=== PATIENT | female | born 1995 | race Caucasian/White ===

== ENCOUNTER 2025-01-17 17:33 | Emergency (ER) | payer OTHER, SELFPAY ==
[2025-01-17 17:39] VITALS: BP 168/82; PULSE 92; RESP 18; TEMP 36.8; O2SAT 100; BMI 20.7
--- NOTE | 2025-01-17 18:14 | ED_ITS ---
<Statement entered by Dionicio Moreno DO - 01/17/25 20:50> Dr. Moreno: I was immediately available in the department for consultation. I did not actually see the patient. HPI - Headache General Chief Complaint: Headache Stated Complaint: migraine shooting px neck Time Seen by Provider: 01/17/25 17:55 Mode of arrival: Ambulatory History of Present Illness HPI Narrative: Ms. Au is a pleasant 29-year-old female with a past medical history of fibromyalgia and migraine headaches who presents to the emergency department for migraine since she woke up this morning. Patient reports she typically gets migraines a few times a month that she can resolve with lying in a certain position however this morning she woke up with a migraine that is gradually getting worse. Reports that she took ibuprofen and Tylenol without relief and she also attempted to take Flexeril but threw it up. Describes headache as being across her forehead and scalp, causing shooting pains down her entire neck and back. Reports that she is also having some sensitivity to light. Describes this migraine is similar to priors but longer lasting and with photosensitivity which is not typical for her. She denies any visual changes. No fevers or chills or flu-like symptoms. No sinus pressure or ear pain. No head trauma. She is here with her spouse. Related Data Home Medications Medication Instructions Recorded Confirmed acetaminophen 500 mg tablet 500 mg PO 01/17/25 ibuprofen 600 mg tablet 600 mg PO Q6H PRN Pain (Scale 01/17/25 01/17/25 Score 7-10) Previous Rx's Medication Instructions Recorded lidocaine 5 % topical patch 1 patch topical DAILY #30 ea 01/17/25 (Lidoderm) naproxen 500 mg tablet 500 mg PO BID PRN pain #14 tabs 01/17/25 ondansetron 4 mg disintegrating 4 mg PO Q8H PRN nausea and 01/17/25 tablet vomiting #14 tabs Allergies Allergy/AdvReac Type Severity Reaction Status Date / Time prednisone AdvReac Vomiting Verified 01/17/25 17:42 Review of Systems Review of Systems ROS Unobtainable: All systems reviewed & are unremarkable except as noted in HPI and below Patient History tobacco type: vaping Exam Narrative Exam Narrative: GENERAL: 29 year old patient appears stated age. Well-developed patient, in no acute distress. HEAD: Atraumatic. Normocephalic. EYES: PERRL. Extraocular motions intact. No scleral icterus. No injection or drainage. ENT: Dried cerumen in BL canals. Nose without bleeding, purulent drainage. Throat without erythema, tonsillar hypertrophy or exudate. Airway patent. Recently removed wisdom teeth x 4 healing well. NECK: Trachea midline. Cervical ROM intact. Subjective pain in right cervical paraspinal region with rotation of head to the neck. No midline cervical tenderness. Negative Kernig and Brudzinski sign. CARDIOVASCULAR: Regular rate and rhythm. RESPIRATORY: ?Nonlabored respirations. ?Speaking in clear, full sentences. ?Clear to auscultation. Breath sounds equal bilaterally. No wheezes, rales, or rhonchi. ? EXTREMITIES: No edema or joint tenderness. Mild subjective BL hip pain with flexion. BACK: Nontender without deformity or crepitance. No flank tenderness. NEURO: AOx3. ?Clear speech. ?Moves all 4 extremities appropriately. No facial asymmetry. Normal [id number], rapid alternating movements, heel-galvez. No pronator drift. Sensation intact to light touch throughout the face and upper and lower extremities. Good insight and judgment. SKIN: No rash or erythema of visible areas Initial Vital Signs Initial Vital Signs: Vital Signs Temperature 98.2 F 01/17/25 17:39 Pulse Rate 92 H 01/17/25 17:39 Respiratory Rate 18 01/17/25 17:39 Blood Pressure 168/82 H 01/17/25 17:39 Pulse Oximetry 100 01/17/25 17:39 Oxygen Delivery Method Room Air 01/17/25 17:39 Course Orders Ordered: Sodium Chloride (Normal Saline 0.9%) 1,000 mls @ 1,000 mls/hr IV BOLUS ONE Stop: 01/17/25 19:08 Last Admin: 01/17/25 18:23 Dose: 1,000 mls/hr Lidocaine (Remove Lidocaine Patch) 1 each TOP BEDTIME GINA Discontinued Medications Diphenhydramine HCl (Diphenhydramine 50 Mg/Ml Vial) 25 mg IV NOW ONE Stop: 01/17/25 18:10 Last Admin: 01/17/25 18:22 Dose: 25 mg Ketorolac Tromethamine (Ketorolac 30 Mg/Ml Vial) 15 mg IV NOW ONE Stop: 01/17/25 18:10 Last Admin: 01/17/25 18:23 Dose: 15 mg Lidocaine (Lidocaine 5% Patch) 1 each TOP NOW ONE Stop: 01/17/25 18:10 Last Admin: 01/17/25 18:23 Dose: 1 each Prochlorperazine (Prochlorperazine 10 Mg/2 Ml Vial) 10 mg IV NOW ONE Stop: 01/17/25 18:10 Last Admin: 01/17/25 18:30 Dose: 10 mg Vital Signs Vital signs: Vital Signs - 8 hr 01/17/25 17:39 01/17/25 18:30 Temperature 98.2 F Pulse Rate 92 H 88 Respiratory Rate 18 Blood Pressure 168/82 H 136/91 H Pulse Oximetry 100 Oxygen Delivery Method Room Air MDM - Headache Medical Records Medical records narrative: None available [facility] Narrative Medical decision making narrative: 29-year-old female with a past medical history of fibromyalgia and migraine headaches who presents to the emergency department for migraine since she woke up this morning. Differential diagnosis includes but is not limited to cervicogenic migraine, tension headache, muscle spasms, fibromyalgia flare, etc. On exam the patient is in no acute distress, nontoxic appearing. Her blood pressure is slightly elevated in triage, she has not having any chest pain or shortness of breath. She has no focal neurologic deficits, her pupils are equal round and reactive, no history of head trauma. Negative meningeal signs. She does have a history of migraine headaches. We will proceed with migraine cocktail including Compazine, IV fluids, Benadryl, Toradol and apply Lidoderm patch to the cervical region. She is agreeable to this plan. Patient feeling much better after ED treatment. Reports migraine is almost completely resolved. She is requesting discharge home. She was prescribed naproxen and Zofran to use if needed for continuing migraine/headache at home in addition [id number] Tylenol. Recommended prompt follow up with your PCP for further evaluation. We discussed strict ED return precautions. Patient verbalized understanding all information and is agreeable to this plan. She is stable for discharge home. Discharge Plan Departure Patient Disposition: Home Clinical Impression: Migraine, cervicogenic Instructions: DI for Migraine Activity Restrictions/Additional Instructions: Dear Ms. Au, Thank you for coming to the emergency department. Today you were treated with an IV migraine cocktail. I am happy that your symptoms have improved. Please go home rest, hydrate, use the prescribed naproxen and nausea medication if needed in addition to Tylenol. Please follow up with your primary care doctor for further evaluation and management of your migraines. Please return to the emergency department if you develop any new or worsening symptoms, persistent vomiting, severe neck pain, fevers or other concerns. Please follow up with your primary care doctor within the next 2-3 days for ER follow-up. (If you do not have a PCP you can call [phone]. ?to schedule an appointment with an [facility] Primary Care Provider) IF YOU DEVELOP ANY NEW OR WORSENING SYMPTOMS, RETURN TO THE ER! Please read the attached instructions, they highlight more specific treatments and interventions for you at home. Thank you for letting me participate in your care, Deepika Lindsey PA-C Prescriptions: New naproxen 500 mg tablet 500 mg PO BID PRN (Reason: pain) Qty: 14 0RF Rx Instructions: Take with food. ondansetron 4 mg tablet,disintegrating 4 mg PO Q8H PRN (Reason: nausea and vomiting) Qty: 14 0RF lidocaine [Lidoderm] 5 % adhesive patch,medicated 1 patch topical DAILY Qty: 30 0RF Rx Instructions: leave on most painful area for up to 12 hrs No Action acetaminophen 500 mg tablet 500 mg PO ibuprofen 600 mg tablet 600 mg PO Q6H PRN (Reason: Pain (Scale Score 7-10)) Referrals: Miscellaneous,Doctor, MD [Primary Care Provider] - Stand Alone Forms: Patient Portal/API/Survey
[2025-01-17] MEDS: diphenhydrAMINE 50 MG/ML VIAL 25 MG IV (18:22)
[2025-01-17] MEDS: SODIUM CHLORIDE 0.9% 1,000 ML 1000 ML IV (18:23)
[2025-01-17] MEDS: KETOROLAC 30 MG/ML VIAL 15 MG IV (18:23)
[2025-01-17] MEDS: LIDOCAINE 5% PATCH 1 EACH TOP (18:23)
[2025-01-17 18:30] VITALS: BP 136/91; PULSE 88
[2025-01-17] MEDS: PROCHLORPERAZINE 10 MG/2 ML VIAL IV (18:30)
[2025-01-17 19:03] VITALS: BP 132/76; PULSE 97; RESP 16; O2SAT 99
== END 2025-01-17 19:10 | disposition home or self-care (01) ==
PROVIDERS: Emergency Provider Physician Assistant
DX: G43.809 Other migraine, not intractable, without status migrainosus (principal)
CPT/HCPCS: 96361; 96374; 96375; 99283; 99284; J0780; J1200; J1885

== ENCOUNTER 2025-02-07 09:22 | Emergency (ER) | payer OTHER, SELFPAY ==
[2025-02-07 09:25] VITALS: BP 132/87; PULSE 89; RESP 17; TEMP 37.1; O2SAT 100; BMI 21.4
--- NOTE | 2025-02-07 09:30 | DI.RAD.S_ITS ---
PROCEDURE: XR ANKLE LT MIN 3V INDICATIONS: rolled ankle per pt TECHNIQUE: 3 views of the ankle were acquired. COMPARISON: None. FINDINGS: Bones: No fractures or dislocations. Ankle mortise is normally aligned. No suspicious bony lesions. Soft tissues: No tibiotalar joint effusion. Achilles tendon appears normal. IMPRESSION: No acute bony abnormality or significant effusion. Dictated by: Samuel Conway M.D. on 02/07/2025 at 9:58 Approved by: Samuel Conway M.D. on 02/07/2025 at 9:59
--- NOTE | 2025-02-07 09:31 | DI.RAD.S_ITS ---
PROCEDURE: XR FOOT LT MIN 3V INDICATIONS: rolled ankle per pt TECHNIQUE: 3 views of the foot were acquired. COMPARISON: [facility], CR, XR ANKLE LT MIN 3V, 02/07/2025, 9:31. FINDINGS: Bones: No fractures or dislocations. No suspicious bony lesions. Soft tissues: No tibiotalar joint effusion. Achilles tendon appears normal. IMPRESSION: No acute bony abnormality. Dictated by: Samuel Conway M.D. on 02/07/2025 at 10:00 Approved by: Samuel Conway M.D. on 02/07/2025 at 10:00
--- NOTE | 2025-02-07 10:25 | PC.NURSE ---
pt states she rolled her ankle last night while walking dog; denies falling. No swelling noted. left foot warm but not red.
--- NOTE | 2025-02-07 10:31 | ED_ITS ---
HPI - Extremity Injury (Lower) General Chief Complaint: Extremity Injury, Lower Stated Complaint: Rolled left ankle Time Seen by Provider: 02/07/25 10:22 Source: patient Mode of arrival: Wheelchair History of Present Illness HPI Narrative: Patient here with a loss prevention analyst for complaints of left lateral foot pain. Patient never had surgery on this foot or ankle before. Does have history of left hip impingement that she uses a cane to walk around with at baseline. Denies does not want a test. She twisted her foot yesterday while walking her dog. Denies any other injuries. No numbness tingling or weakness. Can not bear weight on the foot due to pain. Shoe and sock removed. Related Data Home Medications Medication Instructions Recorded Confirmed acetaminophen 500 mg tablet 500 mg PO 01/17/25 ibuprofen 600 mg tablet 600 mg PO Q6H PRN Pain (Scale 01/17/25 01/17/25 Score 7-10) Previous Rx's Medication Instructions Recorded lidocaine 5 % topical patch 1 patch topical DAILY #30 ea 01/17/25 (Lidoderm) naproxen 500 mg tablet 500 mg PO BID PRN pain #14 tabs 01/17/25 ondansetron 4 mg disintegrating 4 mg PO Q8H PRN nausea and 01/17/25 tablet vomiting #14 tabs Allergies Allergy/AdvReac Type Severity Reaction Status Date / Time adhesive Allergy Blister Verified 02/07/25 09:25 prednisone AdvReac Vomiting Verified 02/07/25 09:25 Review of Systems Review of Systems Narrative: GENERAL: Negative chills, fatigue, malaise, fever, sweats. HEENT: Negative sinus pain, ear pain, sore throat RESPIRATORY: Negative dyspnea, cough CARDIOVASCULAR: Negative chest pain, palpitations GASTROINTESTINAL: Negative vomiting, nausea, abdominal pain : Negative dysuria, frequency, hematuria MUSCULOSKELETAL: Positive muscle or bony pain SKIN: Negative rash, skin lesions NEUROLOGIC: Negative weakness, numbness ROS Unobtainable: All systems reviewed & are unremarkable except as noted in HPI and below Patient History tobacco type: vaping Exam Narrative Exam Narrative: GENERAL: in no distress, not toxic not dyspneic HEAD: Normocephalic. EYES: Pupils equal round EXTREMITIES: No gross deformities. Examination left lower extremity nontender ankle and knee and proximal tib-fib. Foot is warm soft pink brisk cap refills light touch intact to the foot until his wiggles toes. Strong pedal pulse. Brisk cap refills. There is tenderness and edema to the lateral proximal foot. No toe injury. Patient unable to bear weight. Due to pain NEURO: AOx4. Clear speech SKIN: Warm and dry PSYCH: Not anxious, is cooperative Initial Vital Signs Initial Vital Signs: Vital Signs Temperature 98.7 F 02/07/25 09:25 Pulse Rate 89 02/07/25 09:25 Respiratory Rate 17 02/07/25 09:25 Blood Pressure 132/87 02/07/25 09:25 Pulse Oximetry 100 02/07/25 09:25 Oxygen Delivery Method Room Air 02/07/25 09:25 Procedures Orthopedic Splinting/Casting Injury #1: Time of procedure: 10:35 Side: left Lower Extremity Injury Location: foot Lower Extremity Immobilizer: posterior splint Other Orthopedic Equipment: crutches Post splinting neuro exam: intact and no change Post splinting vascular exam: no change Placed by: Nursing Course Orders Ordered: ED Orders 02/07/25 09:30 XR ankle LT min 3V Stat 02/07/25 09:31 XR foot LT min 3V Stat Discontinued Medications Hydrocodone Bitart/Acetaminophen (Hydrocodone/Acet 5/325 Tablet) 2 tab PO NOW ONE Stop: 02/07/25 10:35 Last Admin: 02/07/25 10:39 Dose: 2 tab Vital Signs Vital signs: Vital Signs - 8 hr 02/07/25 09:25 02/07/25 10:59 Temperature 98.7 F Pulse Rate 89 Respiratory Rate 17 19 Blood Pressure 132/87 Pulse Oximetry 100 Oxygen Delivery Method Room Air MDM - Extremity Injury (Lower) Imaging Data Extremity x-ray #1: Radiologist's Impression: [address] [address] XRay Report Signed Patient: Kathrine Au MR#: [id number] : 1995 Acct:[id number] Age/Sex: 29 / F Date of Service: 02/07/25 Loc: ED Accession Number: [id number] Procedure: XR foot LT min 3V Ordering Provider: Narendra Keita MD PROCEDURE: XR FOOT LT MIN 3V INDICATIONS: rolled ankle per pt TECHNIQUE: 3 views of the foot were acquired. [facility], 9:31. FINDINGS: Bones: No fractures or dislocations. No suspicious bony lesions. Soft tissues: No tibiotalar joint effusion. Achilles tendon appears normal. IMPRESSION: No acute bony abnormality. Dictated by: Samuel Conway M.D. on 02/07/2025 at 10:00 Approved by: Samuel Conway M.D. on 02/07/2025 at 10:00 Extremity x-ray #2: Radiologist's Impression: [address] [address] XRay Report Signed Patient: Kathrine Au MR#: [id number] : 1995 Acct:[id number] Age/Sex: 29 / F Date of Service: 02/07/25 Loc: ED Accession Number: [id number] Procedure: XR ankle LT min 3V Ordering Provider: Narendra Keita MD PROCEDURE: XR ANKLE LT MIN 3V INDICATIONS: rolled ankle per pt TECHNIQUE: 3 views of the ankle were acquired. COMPARISON: None. FINDINGS: Bones: No fractures or dislocations. Ankle mortise is normally aligned. No suspicious bony lesions. Soft tissues: No tibiotalar joint effusion. Achilles tendon appears normal. IMPRESSION: No acute bony abnormality or significant effusion. Dictated by: Samuel Conway M.D. on 02/07/2025 at 9:58 Approved by: Samuel Conway M.D. on 02/07/2025 at 9:59 [facility] Narrative Medical decision making narrative: Patient here with a loss prevention analyst for complaints of left lateral foot pain. Patient never had surgery on this foot or ankle before. Does have history of left hip impingement that she uses a cane to walk around with at baseline. Denies does not want a test. She twisted her foot yesterday while walking her dog. Denies any other injuries. No numbness tingling or weakness. Can not bear weight on the foot due to pain. Shoe and sock removed. After history and exam, x-ray left foot and ankle, pain medication [facility] Medical records reviewed: No recent visit for this complaint Differential considered: Includes but not limited to foot fracture strain sprain Imaging studies independently reviewed: X-rays left foot and ankle no acute finding Consultations: Referral for Orthopedics provided Re-evaluations: 10:45 a.m.. Patient tolerated splinting very well. Pain is controlled. Return precautions reviewed. Need repeat imaging if not improving 10 days. Not toxic at discharge. 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 Orthopedic referral provided. She desires discharge home. Discussion: Appropriate for discharge home exam is reassuring. Pain is controlled. Patient tolerated splinting very well. Return precautions reviewed. May need repeat x-ray or imaging 7-10 days if not improving. Return precautions reviewed. She desires discharge home. Diagnosis: Foot sprain Discharge Plan Departure Patient Disposition: Home Clinical Impression: Foot sprain Qualifiers: Encounter type: initial encounter Laterality: left Qualified Code(s): S93.602A - Unspecified sprain of left foot, initial encounter Instructions: DI for Foot Sprain Activity Restrictions/Additional Instructions: Your exam and x-ray imaging are reassuring at this time. You will likely strained/sprained your foot. However if not improving in 10 days will need repeat imaging to evaluate for possible fracture. A splint has been applied to your foot. Crutches provided as well. No driving operating machinery until seen by orthopedic provider. Continue ibuprofen and Tylenol for pain. Call provided orthopedic office today for office appointment for re-evaluation in a week. Return if worse if any questions or concerns Prescriptions: No Action acetaminophen 500 mg tablet 500 mg PO ibuprofen 600 mg tablet 600 mg PO Q6H PRN (Reason: Pain (Scale Score 7-10)) naproxen 500 mg tablet 500 mg PO BID PRN (Reason: pain) Qty: 14 0RF Rx Instructions: Take with food. ondansetron 4 mg tablet,disintegrating 4 mg PO Q8H PRN (Reason: nausea and vomiting) Qty: 14 0RF lidocaine [Lidoderm] 5 % adhesive patch,medicated 1 patch topical DAILY Qty: 30 0RF Rx Instructions: leave on most painful area for up to 12 hrs Referrals: Corrina Mcarthur MD [Physician] - Stand Alone Forms: Patient Portal/API/Survey
[2025-02-07] MEDS: HYDROCODONE/ACET 5/325 TABLET 2 TAB PO (10:39)
[2025-02-07 10:59] VITALS: RESP 19
== END 2025-02-07 11:00 | disposition home or self-care (01) ==
PROVIDERS: Emergency Provider Emergency Medicine
DX: S93.602A Unspecified sprain of left foot, initial encounter (principal); X50.1XXA Overexertion from prolonged static or awkward postures, initial encounter; Y93.K1 Activity, walking an animal
CPT/HCPCS: 29515; 73610; 73630; 99283